=== PATIENT | female | born 1955 | race Caucasian/White ===

== ENCOUNTER → 2017-04-18 | Day surgery (SDC) | payer BC, OTHER ==
[2017-04-06 08:56] VITALS: Ht 162.6 cm; Wt 68.2 kg
[~2017-04-18] VITALS: Ht 162.6 cm; Wt 68.2 kg
[~2017-04-18] MED LIST: AZEL0.15 NAE; CALC600T9 PO; CYCL10TA6 PO; DIPH25CA65 PO; ESTVR2; LEVO5TAB2 PO; LIDOCAINE HCL 2% 2 ML VIAL (20MG/ML) ONE; LMC/150 PO; LORA-741 PO; NF656 TD; NIFE30TA83 PO; OLOP0.1S3 OPB; PRCSR30 PO; PROPOFOL IV EMULSION 10 MG/ML 20 ML VIAL IV ONE; SODIUM CHLORIDE 0.9% 500ML 500 ML IV ONE
--- NOTE | 2017-04-18 13:35 | Endo History and Physical ---
History & Physical Date of Service: Apr 18, 2017. Chief Complaint: Bloating, change in bowel habits Referring Physician: Sheri Olivas History of Present Illness 62 yo CF who presents for colonoscopy secondary to bloating and change in bowel habits. Past Surgical History Hx Cardiac Surgery: No Hx Internal Defibrillator: No Hx Pacemaker: No Hx Abdominal Surgery: No Hx of Implantable Prosthesis: No Hx Post-Op Nausea and Vomiting: No Hx Cancer Surgery: No Hx Thoracic Surgery: No Hx Orthopedic: Yes (RT KNEE MENISCUS REPAIR) Hx Urinary Tract Surgery: No Family History None Social History Smoking Status: Never Smoker Hx Substance Use: No Hx Alcohol Use: Yes (1/2 BOTTLE OF WINE AT NIGHT) Allergies Coded Allergies: Latex (Unverified Allergy, Mild, Hives, 04/18/17) Penicillins (Verified Allergy, Unknown, RASH, 04/06/17) Prednisone (Verified Allergy, Unknown, HIVES, 04/06/17) Sulfa Drugs (Verified Allergy, Unknown, HIVES, 04/06/17) Uncoded Allergies: POLLEN/HIVES (Allergy, Unknown, 12/11/02) Current Medications Reported Home Medications Medications Dose Route/Sig Max Daily Dose Days Date Category Patanol 0.1% Oph (Olopatadine Hcl) 0.1 % [place] 1 Drop OPB BID PRN 04/06/17 Reported Ativan (Lorazepam) 0.5 Mg Tab 0.5 Mg PO BID 04/06/17 Reported Xyzal (Levocetirizine Dihydrochloride) 5 Mg Tab 1 Tab PO HS 90 04/06/17 Reported Benadryl Allergy (Diphenhydramine Hcl) 25 Mg Cap 1 Cap PO DAILY PRN 30 04/06/17 Reported Lamictal (Lamotrigine) 150 Mg Tab 150 Mg PO QAM 04/06/17 Reported Estring (Estradiol) 2 Mg Vagring 04/06/17 Reported Astepro (Azelastine Hcl) 0.15 % Spr 2 [place] MARCOS QAM 30 04/06/17 Reported Calcium + D (Calcium Carbonate-Vitamin D) 1 Tab Tab 1 Tab PO QPM 02/16/15 Reported Nifedical Xl (Nifedipine) 30 Mg Tabcr 30 Mg PO DIRECTED PRN 02/16/15 Reported Vital Signs Weight (Kilograms): 68.18 Height (Feet): 5 Height (Inches): 4 Date Time Temp Pulse Resp B/P (MAP) Pulse Ox O2 Delivery O2 Flow Rate FiO2 04/18/17 12:48 36.7 77 20 115/60 (78) 97 Room Air Physical Exam General Appearance: WD/WN, no apparent distress Respiratory/Chest: Auscultation: breath sounds normal Cardiovascular: Heart Auscultation: RRR Abdomen: Bowel Sounds: normal Inspection & Palpation: soft, non-distended, no tenderness, guarding & rebound Assessment and Plan Assessment: 62 yo CF who presents for colonoscopy secondary to bloating and change in bowel habits. Plan: Proceed with colonoscopy.
--- NOTE | 2017-04-18 14:08 | Discharge Instructions ---
Endoscopy Patient Instructions Date / Procedure(s) Performed Apr 18, 2017. Colonoscopy Allergy Information Coded Allergies: Latex (Unverified Allergy, Mild, Hives, 04/18/17) Penicillins (Verified Allergy, Unknown, RASH, 04/06/17) Prednisone (Verified Allergy, Unknown, HIVES, 04/06/17) Sulfa Drugs (Verified Allergy, Unknown, HIVES, 04/06/17) Uncoded Allergies: POLLEN/HIVES (Allergy, Unknown, 12/11/02) Discharge Date / Findings Apr 18, 2017. Internal hemorrhoids Medication Instructions OK to resume all medications today as prescribed Medications Dose Route/Sig Max Daily Dose Days Date Category Patanol 0.1% Oph (Olopatadine Hcl) 0.1 % [place] 1 Drop OPB BID PRN 04/06/17 Reported Ativan (Lorazepam) 0.5 Mg Tab 0.5 Mg PO BID 04/06/17 Reported Xyzal (Levocetirizine Dihydrochloride) 5 Mg Tab 1 Tab PO HS 90 04/06/17 Reported Benadryl Allergy (Diphenhydramine Hcl) 25 Mg Cap 1 Cap PO DAILY PRN 30 04/06/17 Reported Lamictal (Lamotrigine) 150 Mg Tab 150 Mg PO QAM 04/06/17 Reported Estring (Estradiol) 2 Mg Vagring 04/06/17 Reported Astepro (Azelastine Hcl) 0.15 % Spr 2 [place] MARCOS QAM 30 04/06/17 Reported Calcium + D (Calcium Carbonate-Vitamin D) 1 Tab Tab 1 Tab PO QPM 02/16/15 Reported Nifedical Xl (Nifedipine) 30 Mg Tabcr 30 Mg PO DIRECTED PRN 02/16/15 Reported Provider Instructions Activity Restrictions - No exercising or heavy lifting for 24 hours. - Do not drink alcohol the day of the procedure. - Do not drive a car or operate machinery until the day after the procedure. - Do not make any important decisions or sign important papers in 24 hours after the procedure. Following Day: - Return to full activity which may include returning to work/school. Diet Start your diet with liquids and light foods (jello, soup, juice, toast). Then eat your usual diet if not nauseated. Treatment For Common After Affects For mild abdominal pain, bloating, or excessive gas: - Rest - Eat lightly - Lie on right side Follow-Up Information Follow-up with Sheri Olivas as scheduled Anesthesia Information What You Should Know You have had a procedure that required some medicine to reduce anxiety and discomfort. This treatment is called moderate sedation. After receiving the treatment, you may be sleepy, but you will be able to breathe on your own. The effects of the treatment may last for several hours. Follow these instructions along with Activity/Diet recommendations noted above: * Do NOT do anything where dizziness or clumsiness would be dangerous. * Rest quietly at home today, then you can be up and about tomorrow. * Have a responsible person stay with you the rest of today. * You may have had an I.V. today. If so, you may take the dressing off later today. Recommendations Call your doctor if: * Trouble breathing * Continuous vomiting for more than 24 hours * Temperature above 101 degrees * Severe abdominal pain or bloating * Pain not relieved by pain medicine ordered * There is increased drainage or redness from any incision * A large amount of rectal bleeding greater than 2-3 tablespoons. (If you had a polyp/s removed or have hemorrhoids, a small amount of blood - from the rectum is to be expected.) * You have any unanswered questions or concerns. IN THE EVENT OF A SERIOUS EMERGENCY, GO TO THE NEAREST EMERGENCY ROOM Your discharge instructions were prepared by provider Jose Santana. Patient Instructions Signature Page Margy De León Patient (or Guardian) Signature/Date: I have read and understand the instructions given to me by my caregivers. Caregiver/RN/Doctor Signature/Date: The above-named patient and/or guardian has received patient instructions on this date. + Original Patient Signature Page (only) stays with chart. Please make copy for patient.
--- NOTE | 2017-04-18 14:14 | GI REPORT ---
Procedure Date: 04/18/2017 1:12 PM Procedure: Colonoscopy Indications: Change in bowel habits Medicines: Monitored Anesthesia Care Complications: No immediate complications. Estimated Blood Loss: Estimated blood loss: none. Procedure: Pre-Anesthesia Assessment: - Prior to the procedure, a History and Physical was performed, and patient medications and allergies were reviewed. The patient's tolerance of previous anesthesia was also reviewed. The risks and benefits of the procedure and the sedation options and risks were discussed with the patient. All questions were answered, and informed consent was obtained. Prior Anticoagulants: The patient has taken no previous anticoagulant or antiplatelet agents. ASA Grade Assessment: II - A patient with mild systemic disease. After reviewing the risks and benefits, the patient was deemed in satisfactory condition to undergo the procedure. After I obtained informed consent, the scope was passed under direct vision. Throughout the procedure, the patient's blood pressure, pulse, and oxygen saturations were monitored continuously. The scope was introduced through the anus and advanced to the terminal ileum. The colonoscopy was performed without difficulty. The patient tolerated the procedure well. The quality of the bowel preparation was good. The terminal ileum, ileocecal valve, appendiceal orifice, and rectum were photographed. Findings: Non-bleeding internal hemorrhoids were found during retroflexion. The hemorrhoids were small. The exam was otherwise without abnormality. Impression: - Non-bleeding internal hemorrhoids. - The examination was otherwise normal. - No specimens collected. Recommendation: - Resume previous diet. - Continue present medications. - Repeat colonoscopy in 10 years for surveillance. - Return to primary care physician as previously scheduled. Jose Santana, 04/18/2017 2:13:18 PM This report has been signed electronically. Note Initiated On: 04/18/2017 1:12 PM I attest to the content of the Intraoperative Record and orders documented therein, exceptions below
[2017-04-18 14:43] VITALS: BP 118/76; PULSE 68; O2SAT 97
--- NOTE | 2017-04-18 14:56 | Anesthesiology Progress Note ---
Anesthesia Post Op Note Date & Time Apr 18, 2017 at 14:56 Vital Signs Pain Intensity: 0 Vital Signs Past 12 Hours Date Time Temp Pulse Resp B/P (MAP) Pulse Ox O2 Delivery O2 Flow Rate FiO2 04/18/17 14:43 68 16 118/76 (90) 97 Room Air 04/18/17 14:29 66 16 116/78 (91) 97 Room Air 04/18/17 14:11 64 16 112/95 (101) 97 Room Air 04/18/17 13:56 68 12 115/60 (78) 97 Room Air 04/18/17 12:48 36.7 77 20 115/60 (78) 97 Room Air Notes Mental Status: alert / awake / arousable, participated in evaluation Pt Amnestic to Procedure: Yes Nausea / Vomiting: adequately controlled Pain: adequately controlled Airway Patency, RR, SpO2: stable & adequate BP & HR: stable & adequate Hydration State: stable & adequate Anesthetic Complications: no major complications apparent
== END | disposition home or self-care (01) ==
LOC: C.GI 12:24
PROVIDERS: ATTEND Internal Medicine
DX: K64.8 Other hemorrhoids (principal); R19.4 Change in bowel habit

== ENCOUNTER 2017-09-24 16:24 | Emergency (ER) | payer BC, OTHER ==
[~2017-09-24] VITALS: Ht 162.6 cm; Wt 68.7 kg
[~2017-09-24 16:24] MED LIST changes: -CYCL10TA6 PO; -LIDOCAINE HCL 2% 2 ML VIAL (20MG/ML) ONE; -NF656 TD; -NIFE30TA83 PO; -PROPOFOL IV EMULSION 10 MG/ML 20 ML VIAL IV ONE; -SODIUM CHLORIDE 0.9% 500ML 500 ML IV ONE
[2017-09-24 16:31] VITALS: TEMP 36.7; Ht 162.6 cm; Wt 68.7 kg
--- NOTE | 2017-09-24 17:06 | EMERGENCY ROOM VISIT NOTE ---
History Report prepared by Thi[place]: Freda Anguiano Under the Supervision of: Dr. Chiki Da Silva M.D. First contact with patient: 16:54 Chief Complaint: BACK PAIN Stated Complaint: SEVERE BACK SPASMS, TENDERNESS UNDER RIBCAGE History of Present Illness The patient is a 62 year old female who presents to the Emergency Room with complaints of persistent back pain for the past several days. She states she saw her Chiropractor today who told her it may be from an "issue with the pancreas". The patient rates her discomfort as a 9/10 in severity and describes it as feeling like a "spasm". Movement worsens her pain. She denies any pain in her spine. She denies any urinary symptoms. Exhaling a deep breath also worsens her discomfort. The patient denies any recent long car trips or flights. 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 She still has both her gallbladder and appendix. The patient denies any known history of blood clots. 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 A total of 10 systems reviewed and were otherwise negative. Past Medical & Surgical Medical Problems: (1) Anxiety (2) Bipolar Disorder, Unspecified (3) Raynaud's disease Family History Cancer Heart disease Parkinson's disease Social History Smoking Status: Never Smoker Alcohol Use: occasionally Drug Use: none Marital Status: Housing Status: lives with significant other Occupation Status: employed Current/Historical Medications Scheduled Azelastine Hcl (Astepro), 2 [place] MARCOS QAM Calcium Carbonate-Vitamin D (Calcium + D), 1 TAB PO QPM Cyclobenzaprine Hcl (Flexeril), 10 MG PO TID Lamotrigine (Lamictal), 300 MG PO QAM Levocetirizine Dihydrochloride (Xyzal), 5 MG PO HS Lidocaine (Lidoderm Patch 5%), 1 PATCH TD DAILY Lorazepam (Ativan), 0.5 MG PO BID Scheduled PRN Nifedipine Ext Rel (Procardia Xl Ext Rel), 30 MG PO DAILY PRN for PRN Allergies Coded Allergies: Latex (Unverified Allergy, Mild, Hives, 04/18/17) Penicillins (Verified Allergy, Unknown, RASH, 04/06/17) Prednisone (Verified Allergy, Unknown, HIVES, 04/06/17) Sulfa Drugs (Verified Allergy, Unknown, HIVES, 04/06/17) Uncoded Allergies: POLLEN/HIVES (Allergy, Unknown, 12/11/02) Physical Exam Vital Signs Date Time Temp Pulse Resp B/P (MAP) Pulse Ox O2 Delivery O2 Flow Rate FiO2 09/24/17 18:50 71 16 121/75 100 09/24/17 18:04 73 09/24/17 17:52 99 Room Air 09/24/17 16:31 36.7 84 18 152/82 98 Room Air Physical Exam GENERAL: Patient is a healthy-appearing well-nourished 62 year old female HEAD: Normocephalic atraumatic EYES: Ocular movements intact pupils equal and react to light OROPHARYNX mucous membranes are moist no exudates present no erythema or edema present NECK: Supple no nuchal rigidity CHEST: Good equal expansion LUNGS: Clear and equal to auscultation CARDIAC: Normal S1 and S2 ABDOMEN: Soft, tender in the RUQ along the right 10th rib, no guarding BACK: No CVA tenderness EXTREMITIES: No pain upon palpation normal muscle strength in all groups no clubbing cyanosis or edema NEURO: Patient is following commands and answering questions appropriately. Alert and oriented x3 Cranial Nerves 2-12 grossly intact Medical Decision & Procedures ER Provider Diagnostic Interpretation: Radiology results as stated below per my review and radiologist interpretation: CHEST ONE VIEW PORTABLE CLINICAL HISTORY: 62 years-old Female presenting with CHEST PAIN. TECHNIQUE: Portable upright AP view of the chest was obtained. COMPARISON: None. FINDINGS: Atherosclerosis of the aortic arch suggested. Cardiac silhouette top normal in size. Lungs and pleural spaces clear. Osseous structures normal. Upper abdomen normal. IMPRESSION: 1. No acute cardiopulmonary disease. Electronically signed by: Kulwant Pinon M.D. 09/24/2017 5:40 PM Laboratory Results 09/24/17 17:30 Red Blood Count 4.61, Mean Corpuscular Volume 88.1, Mean Corpuscular Hemoglobin 29.7, Mean Corpuscular Hemoglobin Concent 33.7, Mean Platelet Volume 10.2, Neutrophils (%) (Auto) 49.5, Lymphocytes (%) (Auto) 36.3, Monocytes (%) (Auto) 10.7, Eosinophils (%) (Auto) 2.2, Basophils (%) (Auto) 1.1, Neutrophils # (Auto ) 2.22, Lymphocytes # (Auto) 1.63, Monocytes # (Auto) 0.48, Eosinophils # (Auto ) 0.10, Basophils # (Auto) 0.05 09/24/17 17:30 Test 09/24/17 17:30 09/24/17 17:41 White Blood Count 4.49 K/uL (4.8-10.8) Red Blood Count 4.61 M/uL (4.2-5.4) Hemoglobin 13.7 g/dL (12.0-16.0) Hematocrit 40.6 % (37-47) Mean Corpuscular Volume 88.1 fL (80-100) Mean Corpuscular Hemoglobin 29.7 pg (25-34) Mean Corpuscular Hemoglobin Concent 33.7 g/dl (32-36) Platelet Count 255 K/uL (130-400) Mean Platelet Volume 10.2 fL (7.4-10.4) Neutrophils (%) (Auto) 49.5 % Lymphocytes (%) (Auto) 36.3 % Monocytes (%) (Auto) 10.7 % Eosinophils (%) (Auto) 2.2 % Basophils (%) (Auto) 1.1 % Neutrophils # (Auto) 2.22 K/uL (1.4-6.5) Lymphocytes # (Auto) 1.63 K/uL (1.2-3.4) Monocytes # (Auto) 0.48 K/uL (0.11-0.59) Eosinophils # (Auto) 0.10 K/uL (0-0.5) Basophils # (Auto) 0.05 K/uL (0-0.2) RDW Standard Deviation 43.7 fL (36.4-46.3) RDW Coefficient of Variation 13.6 % (11.5-14.5) Immature Granulocyte % (Auto) 0.2 % Immature Granulocyte # (Auto) 0.01 K/uL (0.00-0.02) Est Creatinine Clear Calc Drug Dose 73.0 ml/min Estimated GFR () 95.8 Estimated GFR (Non- 82.6 BUN/Creatinine Ratio 16.6 (10-20) Calcium Level 9.1 mg/dl (8.5-10.1) Total Bilirubin 0.3 mg/dl (0.2-1) Direct Bilirubin 0.1 mg/dl (0-0.2) Aspartate Amino Transf (AST/SGOT) 29 U/L (15-37) Alanine Aminotransferase (ALT/SGPT) 38 U/L (12-78) Alkaline Phosphatase 83 U/L (45-117) Total Protein 8.4 gm/dl (6.4-8.2) Albumin 4.2 gm/dl (3.4-5.0) Lipase 171 U/L (73-393) Bedside Hemoglobin 13.9 g/dl (12.0-16.0) Bedside Hematocrit 41 % (37-47) Bedside Sodium 139 mEq/L (135-144) Bedside Potassium 3.8 mEq/L (3.3-5.0) Bedside Chloride 104 mEq/L (101-112) Bedside Total CO2 26 mEq/l (24-31) Anion Gap 14.0 mmol/L (16-25) Bedside Blood Urea Nitrogen 13 mg/dl (7-18) Bedside Creatinine 0.7 mg/dl (0.6-1.3) Bedside Glucose (other) 90 mg/dl (70-99) Bedside Ionized Calcium (Jake) 1.18 mmol/l (1.12-1.32) Labs reviewed by ED physician. Medications Administered Medications (Trade) Dose Ordered Sig/Patricia Route Start Time Stop Time Status Last Admin Dose Admin Ketorolac Tromethamine (Toradol Inj) 30 mg NOW STAT IV 09/24/17 17:09 09/24/17 17:10 DC 09/24/17 18:13 30 MG Ondansetron HCl (Zofran Inj) 4 mg NOW STAT IV 09/24/17 17:09 09/24/17 17:10 DC 09/24/17 18:14 4 MG ECG Indication: back/shoulder pain Rate (beats per minute): 72 Rhythm: normal sinus Findings: no acute ischemic change, no ectopy ED Course 1657: Past medical records reviewed. The patient was evaluated in room B8. A complete history and physical examination was performed. 1709: Zofran 4 mg IV, Toradol 30 mg IV. 1820: I reevaluated the patient. She is feeling well and resting comfortably. I discussed her results and discharge instructions and she verbalized complete understanding and agreement. Medical Decision Prior records/ancillary studies reviewed. Triage Nursing notes reviewed. The patient's history was concerning for abdominal pain. Differential diagnosis: Etiologies such as appendicitis, diverticulitis, PUD, biliary pathology, UTI, pancreatitis, obstruction, mesenteric ischemia, aortic pathology, infections, inflammatory bowel disease, renal colic, as well as others were entertained. This is a 62-year-old female who presents emergency department complaining of left-sided back and anterior rib pain. The pain started suddenly when the patient stood up from a chair. She was sent in by her chiropractor's office was concerned that the patient may have an issue with her pancreas. I will note however that the patient has normal CBC normal renal profile normal lipase and also has a normal d-dimer. I feel her pain is actually muscle skeletal nature as it actually runs all the way around the 10th rib. I suspect she may have slightly displaced this rib as this is where she is tender. She was given Toradol in the emergency department. Repeat examination revealed improvement patient's symptoms. Using shared medical decision making with the patient and based on her above laboratory work as well as imaging study the patient wishes to be conservatively treated with pain medication. We will try a Lidoderm patch at home along with ibuprofen and Flexeril. I stressed the need for follow -up with her primary care physician if the pain is continuing. I will note that the patient has a normal EKG. Patient and were in agreement with the treatment plan. Medication Reconcilliation Current Medication List: was personally reviewed by me Blood Pressure Screening Patient's blood pressure: Elevated blood pressure Blood pressure disposition: Referred to PCP Impression Primary Impression: Rib pain on left side Scribe Attestation The scribe's documentation has been prepared under my direction and personally reviewed by me in its entirety. I confirm that the note above accurately reflects all work, treatment, procedures, and medical decision making performed by me. Departure Information Dispostion Home / Self-Care Prescriptions Cyclobenzaprine Hcl (FLEXERIL) 10 Mg Tab 10 MG PO TID, #21 TAB Prov: Chiki Da Silva MD 09/24/17 Lidocaine (Lidoderm Patch 5%) 1 Ea Tdsy 1 PATCH TD DAILY for 30 Days, #30 PATCH Prov: Chiki Da Silva MD 09/24/17 Referrals Morgan Wells M.D. (PCP) Patient Instructions ED Contusion Vs Minor Fx Rib, ED Spasm Back No Trauma, My [facility] Additional Instructions You were found to have an elevated blood pressure today (>120 sytolic or >90 diastolic). Per medicare guidelines, you need to follow up with this blood pressure screening with your Primary Care Physician (PCP). For a new PCP call [phone]. Take 600 mg Ibuprofen every 6 hours or Aleve as directed Use Lidoderm patch daily Take Flexeril for breakthrough pain You have been examined and treated today on an emergency basis only. This is not a substitute for, or an effort to provide, complete comprehensive medical care. It is impossible to recognize and treat all injuries or illnesses in a single emergency department visit. It is therefore important that you follow up closely with Dr Wells. Call as soon as possible for an appointment. Thank you for your time and consideration. I look forward to speaking with you again soon. Please don't hesitate to call us if you have any questions.
[2017-09-24] MEDS ORDERED: ONDANSETRON INJ 2 MG/ML 2 ML VIAL IV STA (17:09)
[2017-09-24] MEDS ORDERED: KETOROLAC TROMETHAMINE 30 MG/ML VIAL IV STA (17:09)
--- NOTE | 2017-09-24 17:41 | DIAGNOSTIC IMAGING REPORT ---
CHEST ONE VIEW PORTABLE CLINICAL HISTORY: 62 years-old Female presenting with CHEST PAIN. TECHNIQUE: Portable upright AP view of the chest was obtained. COMPARISON: None. FINDINGS: Atherosclerosis of the aortic arch suggested. Cardiac silhouette top normal in size. Lungs and pleural spaces clear. Osseous structures normal. Upper abdomen normal. IMPRESSION: 1. No acute cardiopulmonary disease. Electronically signed by: Kulwant Pinon M.D. 09/24/2017 5:40 PM Dictated Date/Time: 09/24/2017 5:39 PM
[2017-09-24 17:52] VITALS: O2SAT 99
[2017-09-24 17:54] LABS: BASO % 1.1 %; BASO ABS # 0.05 K/uL (0-0.2); COMPLETE YES; EOS % 2.2 %; HEMATOCRIT 40.6 % (37-47); IG% 0.2 %; LYMPH % 36.3 %; LYMPH ABS # 1.63 K/uL (1.2-3.4); MEAN CELL VOLUME 88.1 fL (80-100); MEAN CORPUSCULAR HEMOGLOBIN 29.7 pg (25-34); MEAN CORPUSCULAR HGB CONC 33.7 g/dl (32-36); MEAN PLATELET VOLUME 10.2 fL (7.4-10.4); MONO % 10.7 %; NEUT % 49.5 %; PLATELET COUNT 255 K/uL (130-400); RED BLOOD COUNT 4.61 M/uL (4.2-5.4); WHITE BLOOD COUNT 4.49 K/uL (4.8-10.8)
[2017-09-24 17:56] LABS: ISTAT CREATININE 0.7 mg/dl (0.6-1.3); ISTAT HEMOGLOBIN 13.9 g/dl (12.0-16.0); ISTAT IONIZED CALCIUM 1.18 mmol/l (1.12-1.32)
[2017-09-24] MEDS ORDERED: NIFE30TA83 PO (18:04)
[2017-09-24 18:13] LABS: BUN/CREATININE RATIO 16.6 (10-20); CALCIUM 9.1 mg/dl (8.5-10.1); CREATININE 0.78 mg/dl (0.60-1.20); POTASSIUM 3.7 mmol/L (3.5-5.1)
[2017-09-24] MEDS ORDERED: NF656 TD (18:26)
[2017-09-24] MEDS ORDERED: CYCL10TA6 PO (18:26)
[2017-09-24 18:50] VITALS: BP 121/75; PULSE 71; O2SAT 100
== END 2017-09-24 18:52 | disposition home or self-care (01) ==
LOC: C.EDB 16:25
DX: R07.81 Pleurodynia (principal); M54.9 Dorsalgia, unspecified; F41.9 Anxiety disorder, unspecified; F31.9 Bipolar disorder, unspecified; Z79.899 Other long term (current) drug therapy; Z88.0 Allergy status to penicillin; Z88.2 Allergy status to sulfonamides; Z88.8 Allergy status to other drugs, medicaments and biological substances; Z91.040 Latex allergy status; Z80.9 Family history of malignant neoplasm, unspecified; Z82.49 Family history of ischemic heart disease and other diseases of the circulatory system